=== PATIENT | male | born 1970 | race Caucasian/White ===

== ENCOUNTER 2017-05-03 09:44 | Emergency (ER) | payer MEDICAID ==
[2017-05-03 10:46] VITALS: RESP 18; TEMP 98.2
--- NOTE | 2017-05-03 11:55 | US ---
PROCEDURE: Ultrasound examination of the left hand soft tissue HISTORY: 46M, left hand swelling, eval if collection COMPARISON: No prior similar study available for comparison. TECHNIQUE: Limited ultrasound examination of the left hand and wrist was performed. FINDINGS: There is a skin and subcutaneous soft tissue swelling noted at the left trace. There is subcutaneous 1.6 x 0.6 centimeter fluid collection noted. Findings may represent post trauma seroma versus abscess formation. IMPRESSION: Soft tissue swelling. Deep subcutaneous fluid collection measures 1.6 x 0.6 centimeter may represent seroma or abscess. If clinically warranted further assessment by MRI may be obtained.
[2017-05-03] MEDS ORDERED: Piperacill/Tazo 4.5gm in NS 4.5 GM/100 ML BAG IVPB STA (12:28)
--- NOTE | 2017-05-03 12:36 | ED PDOC ---
Arrival/HPI - General Chief Complaint: Upper Extremity Problem/Injury Time Seen by Provider: 05/03/17 10:54 Historian: Patient, Family - History of Present Illness Narrative History of Present Illness (Text): you were treated in the ED today for working/injury/hit to the left hand with pain/redness/swelling but otherwise without any nausea/vomiting/headache/ dizziness/difficulty breathing/chest pain/abdomen pain/numbness/tingling/pain with urination. Time/Duration: Other (2 days) Symptom Onset: Gradual Symptom Course: Worsening Quality: Aching Severity Level: 4 Activities at Onset: Rest Context: Sitting Past Medical History - Provider Review Nursing Documentation Reviewed: Yes - Travel History Have you recently traveled outside [place] w/in the past 3 mons?: No - Psychiatric Hx Substance Use: No - Anesthesia Hx Anesthesia: Yes Hx Anesthesia Reactions: No Family/Social History - Physician Review Nursing Documentation Reviewed: Yes Family/Social History: No Known Family HX Smoking Status: Unknown If Ever Smoked Hx Alcohol Use: No Hx Substance Use: No Allergies/Home Meds Allergies/Adverse Reactions: Allergies No Known Allergies Allergy (Verified 05/03/17 10:45) Review of Systems - Review of Systems Constitutional: Normal Eyes: Normal ENT: Normal Respiratory: Normal Cardiovascular: Normal Gastrointestinal: Normal Genitourinary Male: Normal Musculoskeletal: Other (left hand swelling) Skin: Cellulitis Neurological: Normal Endocrine: Normal Hemo/Lymphatic: Normal Psychiatric: Normal Physical Exam Vital Signs Reviewed: Yes Vital Signs Temp Pulse Resp BP Pulse Ox 05/03/17 12:25 74 18 125/69 97 05/03/17 11:11 79 18 128/74 96 05/03/17 10:15 98.2 F 82 18 130/97 H 95 Temperature: Afebrile Blood Pressure: Hypertensive Pulse: Regular Respiratory Rate: Normal Appearance: Positive for: Uncomfortable Pain Distress: None Mental Status: Positive for: Alert and Oriented X 3 - Systems Exam Head: Present: Atraumatic, Normocephalic Pupils: Present: PERRL Extroacular Muscles: Present: EOMI Conjunctiva: Present: Normal Ears: Present: Normal Mouth: Present: Moist Mucous Membranes Pharnyx: Present: Normal Nose (External): Present: Atraumatic Neck: Present: Normal Range of Motion Respiratory/Chest: Present: Clear to Auscultation, Good Air Exchange Cardiovascular: Present: Regular Rate and Rhythm Abdomen: No: Tenderness, Distention, Normal Bowel Sounds, Peritoneal Signs, Rebound, Guarding, McBurney's Point Tender, Rovsing's Sign Present, Hernias, Feeding Tubes, Ostomy Tubes, Mass/Organomegaly, Scars, Other Back: Present: Normal Inspection Upper Extremity: Present: Edema, Tenderness, Swelling, Erythema, Other (left upper hand swelling/redness, area of mild fluctuance on extensor surface, but otherwise warm/sensation/pink/radial pulse positive with tenderness over hand area) Lower Extremity: Present: Normal Inspection Neurological: Present: GCS=15, CN II-XII Intact, Speech Normal, Motor Func Grossly Intact Skin: Present: Warm, Other (see LUE) Psychiatric: Present: Alert, Oriented x 3, Normal Insight, Normal Concentration Medical Decision Making ED Course and Treatment: you were treated in the ED today for working/injury/hit to the left hand with pain/redness/swelling but otherwise without any nausea/vomiting/headache/ dizziness/difficulty breathing/chest pain/abdomen pain/numbness/tingling/pain with urination. You were otherwise breathing easily, pink moist lips, talking easily, good strength/sensation, alert/oriented, walking easily, clear lungs, no abdomen tenderness, left upper hand/wrist back area of redness/area of softness but otherwise pink/warm/sensation/radial pulse with tenderness, no fever temp 98.2, stable heart rate 82, stable breathing rate 18, excellent oxygen level 95% room air, elevated blood pressure 130/97 which we recommend repeat in 2-3 days primary care office to determine further treatment, you have blood tests no infection count 6, stable blood level hemoglobin 14/platelets 239 , stable chemistry, radiology ultrasound left hand soft tissue swelling/deep fluid collection 1.6 x0.6cm__and left hand xray no acute findings, keflex, motrin done in the ED with improvement, counselled to stay in the hospital for iv treatments, surgical evaluation but you refused and cautioned for complications//loss of limb, and thus you went home with family. 1. Recommend keflex as directed for infection control. 2. Recommend follow-up primary care 1-2 days to review symptoms, referral to surgery/hand clinic evaluation. 3. If any worsening pain, fever, chills, nausea, vomiting, difficulty breathing, numbness, loss of limb function, pain with urination or any medical condition then return to the ED. Report Date : 05/03/2017 11:53:31 PROCEDURE: Ultrasound examination of the left hand soft tissue Dictator : Marie Salinas MD IMPRESSION: Soft tissue swelling. Deep subcutaneous fluid collection measures 1.6 x 0.6 centimeter may represent seroma or abscess. If clinically warranted further assessment by MRI may be obtained. Report Date : 05/03/2017 12:51:06 PROCEDURE: Left Hand Radiographs. Dictator : Joe Puckett MD IMPRESSION: Normal left hand radiographs. 05/03/17 14:33 05/03/17 14:34 Reassessment Condition: Re-examined, Unchanged, Improved - Lab Interpretations Lab Results: 05/03/17 13:05 05/03/17 13:05 Lab Results 05/03/17 13:05: Sodium 148, Potassium 4.0, Chloride 107, Carbon Dioxide 24, Anion Gap 21 H, BUN 14, Creatinine 0.7 L, Est GFR ( Amer) > 60, Est GFR ( Non-Af Amer) > 60, Random Glucose 118 H, Calcium 9.8, Total Bilirubin 0.4, AST 20, ALT 22, Alkaline Phosphatase 56, Total Protein 7.7, Albumin 4.4, Globulin 3.3, Albumin/Globulin Ratio 1.4 05/03/17 13:05: PT 11.8, INR 1.03, APTT 29.5 05/03/17 13:05: WBC 6.3, RBC 4.82, Hgb 14.6, Hct 43.3, MCV 89.8, MCH 30.3, MCHC 33.7, RDW 12.6, Plt Count 239, MPV 10.3, Gran % 42.6 L, Lymph % (Auto) 47.7 H, [place] % (Auto) 5.7, Eos % (Auto) 3.2, Baso % (Auto) 0.8, Gran # 2.68, Lymph # ( Auto) 3.0, [place] # (Auto) 0.4, Eos # (Auto) 0.2, Baso # (Auto) 0.05 I have reviewed the lab results: Yes - RAD Interpretation Radiology Orders: 05/03/17 10:54 HAND LEFT 3 VIEWS ROUTINE [RAD] Stat 05/03/17 10:55 EXTREMITY NON VASCULAR [US] Stat Metal Stud Framer: Radiologist (see mdm) - Medication Orders Current Medication Orders: Discontinued Medications Cephalexin Monohydrate (Keflex) 500 mg PO STAT STA PRN Reason: Protocol Stop: 05/03/17 10:56 Last Admin: 05/03/17 11:16 Dose: 500 mg Piperacillin Sod/Tazobactam Sod (Zosyn 4.5 Gm In Ns 100ml) 4.5 gm in 100 mls @ 200 mls/hr IVPB STAT STA PRN Reason: Protocol Stop: 05/03/17 12:57 Ibuprofen (Motrin Tab) 800 mg PO STAT STA Stop: 05/03/17 10:55 Last Admin: 05/03/17 11:16 Dose: 800 mg MAR Pain/Vitals Document 05/03/17 11:16 EQ (Rec: 05/03/17 11:16 EQ [id number]) Pain Reassessment Is This A Pain ReAssessment? No Sleep Is patient sleeping during reassessment? No Presence of Pain Presence of Pain Yes Pain Scale Used Pain Scale Used Numeric Location Left, Right or Bilateral Right Pain Location Body Site Hand Description Constant Intensity 8 Scale Used Numeric Disposition/Present on Arrival - Present on Arrival Any Indicators Present on Arrival: No History of DVT/PE: No History of Uncontrolled Diabetes: No Urinary Catheter: No History of Decub. Ulcer: No History Surgical Site Infection Following: None - Disposition Have Diagnosis and Disposition been Completed?: Yes Diagnosis: Abscess, hand Disposition: AGAINST MEDICAL ADVICE Disposition Time: 14:37 Patient Plan: Discharge Patient Problems: Current Active Problems Problem Status Onset Abscess, hand Acute Condition: SERIOUS Additional Instructions: you were treated in the ED today for working/injury/hit to the left hand with pain/redness/swelling but otherwise without any nausea/vomiting/headache/ dizziness/difficulty breathing/chest pain/abdomen pain/numbness/tingling/pain with urination. You were otherwise breathing easily, pink moist lips, talking easily, good strength/sensation, alert/oriented, walking easily, clear lungs, no abdomen tenderness, left upper hand/wrist back area of redness/area of softness but otherwise pink/warm/sensation/radial pulse with tenderness, no fever temp 98.2, stable heart rate 82, stable breathing rate 18, excellent oxygen level 95% room air, elevated blood pressure 130/97 which we recommend repeat in 2-3 days primary care office to determine further treatment, you have blood tests no infection count 6, stable blood level hemoglobin 14/platelets 239 , stable chemistry, radiology ultrasound left hand soft tissue swelling/deep fluid collection 1.6 x0.6cm__and left hand xray no acute findings, keflex, motrin done in the ED with improvement, counselled to stay in the hospital for iv treatments, surgical evaluation but you refused and cautioned for complications//loss of limb, and thus you went home with family. 1. Recommend keflex as directed for infection control. 2. Recommend follow-up primary care 1-2 days to review symptoms, referral to surgery/hand clinic evaluation. 3. If any worsening pain, fever, chills, nausea, vomiting, difficulty breathing, numbness, loss of limb function, pain with urination or any medical condition then return to the ED. Prescriptions: Cephalexin [Keflex] 500 mg PO Q6 10 Days #40 capsule Referrals: Tj Hollins MD [Primary Care Provider] - Follow up with primary Forms: [employer] (Swedish), WORK NOTE
--- NOTE | 2017-05-03 12:53 | RAD ---
PROCEDURE: Left Hand Radiographs. HISTORY: 46yoM, left hand pain/swelling COMPARISON: None. FINDINGS: BONES: Normal. No fracture. JOINTS: Normal. No osteoarthritic changes. SOFT TISSUES: Normal. OTHER FINDINGS: None. IMPRESSION: Normal left hand radiographs.
[2017-05-03 13:15] LABS: BASO # 0.05 K/mm3 (0.0-2.0); BASO % 0.8 % (0.0-3.0); EOS # 0.2 (0.0-0.7); EOS % 3.2 % (1.5-5.0); GRAN # 2.68 (1.4-6.5); GRAN % 42.6 % (50.0-68.0); HEMOGLOBIN 14.6 g/dL (14.0-18.0); LYMPH % 47.7 % (22.0-35.0); MEAN CELL VOLUME 89.8 fl (80.0-105.0); MEAN CORPUSCULAR HEMOGLOBIN 30.3 pg (25.0-35.0); MEAN CORPUSCULAR HGB CONC 33.7 g/dl (31.0-37.0); MEAN PLATELET VOLUME 10.3 fl (7.0-11.0); MONO # 0.4 (0.1-0.6); MONO % 5.7 % (1.0-6.0); RBC 4.82 10^6/uL (3.5-6.1); RED CELL DISTRIBUTION WIDTH 12.6 % (11.5-14.5); WHITE BLOOD COUNT 6.3 10^3/ul (4.5-11.0)
[2017-05-03 13:27] LABS: INR 1.03 (0.93-1.08); PARTIAL THROMBOPLASTIN TIME 29.5 Seconds (25.1-36.5); PROTHROMBIN TIME 11.8 SECONDS (9.4-12.5)
[2017-05-03 13:39] LABS: ALB/GLOB RATIO 1.4 (1.1-1.8); ALBUMIN 4.4 g/dL (3.0-4.8); ALT/SGPT 22 U/L (7-56); AST/SGOT 20 U/L (17-59); BLOOD UREA NITROGEN 14 mg/dL (7-21); CALCIUM 9.8 mg/dL (8.4-10.5); GFR AFRICAN-AMERICAN > 60; GFR NON-AFRICAN AMERICAN > 60
[2017-05-03 14:45] VITALS: BP 126/70; PULSE 87; O2SAT 99
== END 2017-05-03 14:46 | disposition left against medical advice (07) ==
LOC: ED 09:44
DX: L02.512 Cutaneous abscess of left hand (principal)